=== PATIENT | female | born 2000 | race Caucasian/White ===

== ENCOUNTER 2018-01-18 10:23 | Outpatient (CLI) | payer SELFPAY ==
--- NOTE | 2018-01-18 19:27 | Diagnostic Imaging Report ---
ALISSON MONTANO (PILOT JULIAN) [facility] [address] [facility] [address] [place] [address]. [id number] Report Submission Date: January 18, 2018 10:54:56 AM CDT Patient Study Name: YONNY RICO Date: January 18, 2018 10:27:58 AM CDT Modality Type: DX Gender: F Description: UPPER EXTREMITY : 89 Institution: [facility] Physician: ALISSON MONTANO ( ATHOL) Examination: Plain film left hand History: LEFT HAND, PAIN IN 2ND AND 3RD DIGITS AFTER INJURY TODAY, 3RD WORSE THAN 2ND (Hx) Comparison exams: None available Findings: 3 views the left hand demonstrate normal cortical margins. No fracture. No dislocation. No soft tissue abnormality. Impression: No acute osseous abnormality Electronically signed on January 18, 2018 10:54:56 AM CDT by: Jeffery VILLALOBOS
== END 2018-01-18 12:32 ==
LOC: RAD 10:23
PROVIDERS: ATTEND Family Medicine
DX: M79.642 Pain in left hand (principal); T14.90XA Injury, unspecified, initial encounter; X58.XXXA Exposure to other specified factors, initial encounter; Y92.9 Unspecified place or not applicable; Y93.9 Activity, unspecified; Y99.9 Unspecified external cause status
CPT/HCPCS: 73130